=== PATIENT | female | born 1990 | race Caucasian/White ===

== ENCOUNTER 2022-06-29 13:40 | Emergency (ER) | payer MEDICAID ==
[~2022-06-29] VITALS: Ht 162.6 cm; Wt 101.0 kg
[2022-06-29 14:04] VITALS: BP 139/99
[2022-06-29 15:00] LABS: BASOPHILS % 1.2 % (0.0-2.0); EOSINOPHILS % 3.4 % (0.0-5.0); HEMOGLOBIN. 14.1 g/dL (12.0-16.0); LYMPHOCYTES % 35.8 % (20.0-50.0); MEAN CORPUSCULAR VOLUME 86.4 fL (81.0-99.0); MONOCYTES % 6.5 % (2.0-8.0); NEUTROPHILS % 53.1 % (40.0-76.0); PLATELET 197 x1000/uL (130-400); RED BLOOD CELL COUNT 4.86 mill/uL (4.2-5.4); RED CELL DISTRIBUTION WIDTH 12.4 % (11.6-14.6)
[2022-06-29 15:10] LABS: CHLORIDE 109 mEq/L (98-107)
[2022-06-29 15:11] LABS: PROTHROMBIN TIME 11.1 sec (9.6-11.0)
[2022-06-29 15:13] LABS: HCG SCREEN NEGATIVE
[2022-06-29] MEDS ORDERED: KETOROLAC 60MG/2ML VIAL IM STA (16:27)
[2022-06-29 16:49] LABS: CLARITY URINE CLEAR (CLEAR); COLOR URINE YELLOW (YELLOW); KETONES URINE TRACE (NEGATIVE); LEUKOCYTE ESTERASE URINE TRACE (NEGATIVE); NITRITE URINE NEGATIVE (NEGATIVE); OCCULT BLOOD URINE NEGATIVE (NEGATIVE); PH URINE 5.5 (4.5-8.0); PROTEIN URINE NEGATIVE (NEGATIVE); SPECIFIC GRAVITY URINE 1.026 (1.005-1.030); UROBILINOGEN URINE 0.2 E.U./dL (0.2-1.0)
[2022-06-29] MEDS ORDERED: ACETAMINOPHEN 325MG TABLET PO ONE (17:15)
[2022-06-29] MEDS ORDERED: NITR-87 MT (17:33)
== END 2022-06-29 17:54 | disposition home or self-care (01) ==
LOC: ER 13:40
DX: N39.0 Urinary tract infection, site not specified (principal); N92.6 Irregular menstruation, unspecified
CPT/HCPCS: 36415; 74176; 76830; 76856; 80053; 81003; 81025; 84703; 85025; 99284; J1885

== ENCOUNTER 2025-03-24 14:19 | Emergency (ER) | payer MEDICAID ==
[~2025-03-24] VITALS: Ht 167.6 cm; Wt 87.0 kg
[~2025-03-24 14:19] MED LIST: NITR-87 MT
[2025-03-24 14:33] VITALS: O2SAT 100
[2025-03-24 14:53] LABS: BASOPHILS % 0.9 % (0.0-2.0); EOSINOPHILS % 2.8 % (0.0-5.0); HEMATOCRIT. 40.0 % (36.0-48.0); HEMOGLOBIN. 13.7 g/dL (12.0-16.0); LYMPHOCYTES % 27.7 % (20.0-50.0); MEAN PLATELET VOLUME 9.7 fl (7.4-10.4); MONOCYTES % 6.5 % (2.0-8.0); NEUTROPHILS % 62.1 % (40.0-76.0); PLATELET 201 x1000/uL (130-400); RED BLOOD CELL COUNT 4.64 mill/uL (4.2-5.4); RED CELL DISTRIBUTION WIDTH 12.5 % (11.6-14.6)
[2025-03-24 14:53] LABS: CLARITY URINE CLEAR (CLEAR); COLOR URINE YELLOW (YELLOW); GLUCOSE URINE NEGATIVE (NEGATIVE); KETONES URINE NEGATIVE (NEGATIVE); LEUKOCYTE ESTERASE URINE 1+ (NEGATIVE); NITRITE URINE NEGATIVE (NEGATIVE); OCCULT BLOOD URINE TRACE (NEGATIVE); PH URINE 5.5 (4.5-8.0); PROTEIN URINE NEGATIVE (NEGATIVE); SPECIFIC GRAVITY URINE 1.020 (1.005-1.030); UROBILINOGEN URINE 1.0 E.U./dL (0.2-1.0)
[2025-03-24 15:07] LABS: CREATININE 0.7 mg/dL (0.6-1.0)
[2025-03-24 15:08] LABS: UREA NITROGEN BLOOD 8 mg/dL (9-23)
[2025-03-24 15:37] LABS: BACTERIA URINE 1+; SQUAMOUS EPITHELIAL CELL URINE FEW /lpf (RARE/1+)
[2025-03-24] MEDS: ACETAMINOPHEN 325MG TABLET PO ONE (16:30)
[2025-03-24 17:13] LABS: ASPARTATE AMINOTRANSFERASE 18 IU/L (<34); BILIRUBIN DIRECT 0.1 mg/dL (<=3.0); BILIRUBIN TOTAL 0.4 mg/dL (0.1-1.0); PROTEIN TOTAL 7.1 g/dL (6.0-8.3)
[2025-03-24 17:18] LABS: HCG SCREEN NEGATIVE
[2025-03-24] MEDS ORDERED: FAMO20TA8 MT (18:59)
[2025-03-24] MEDS ORDERED: KETO10TA2 MT (18:59)
[2025-03-24] MEDS ORDERED: ACET-2708 MT (18:59)
[2025-03-24] MEDS: FAMOTIDINE 20MG TABLET PO ONE (19:00)
[2025-03-24 19:16] VITALS: BP 145/91; PULSE 66; RESP 18; TEMP 36.9; O2SAT 100
[2025-03-24] MEDS ORDERED: NITR100C MT (19:22)
== END 2025-03-24 19:17 | disposition home or self-care (01) ==
LOC: ER 14:19
DX: K21.9 Gastro-esophageal reflux disease without esophagitis (principal); E28.2 Polycystic ovarian syndrome; N39.0 Urinary tract infection, site not specified; Z79.899 Other long term (current) drug therapy
CPT/HCPCS: 36415; 74176; 76705; 80048; 80076; 81003; 84703; 85025; 93005; 99284